=== PATIENT | female | born 1935 | race Caucasian/White ===

== ENCOUNTER → 2017-07-06 | Outpatient (CLI) | payer MEDICARE, BC ==
[~2017-07-06] MED LIST: COUMADIN 1MG1 MG/TAB; LEVOXYL0.137 MG PO; TOPROL XL 25MG25 MG PO
== END ==
LOC: MC.RAD 06-23 10:40
DX: Z12.31 Encounter for screening mammogram for malignant neoplasm of breast (principal)

== ENCOUNTER 2019-03-05 17:15 | Emergency (ER) | payer MEDICARE, BC ==
[~2019-03-05] VITALS: Ht 167.6 cm; Wt 83.6 kg
[2019-03-05 17:22] VITALS: BP 188/87; TEMP 96.8
[2019-03-05 19:00] LABS: INR 2.2 (0.8-3.0); PROTHROMBIN TIME 26.6 SECONDS (9.7-12.8)
[2019-03-05 19:25] VITALS: PULSE 96
== END 2019-03-05 19:25 | disposition home or self-care (01) ==
LOC: COL.ER 17:15
PROVIDERS: Emergency Medicine
DX: S51.012A Laceration without foreign body of left elbow, initial encounter (principal); I48.91 Unspecified atrial fibrillation; Z79.01 Long term (current) use of anticoagulants; Z86.73 Personal history of transient ischemic attack (TIA), and cerebral infarction without residual deficits; Z23 Encounter for immunization; W01.0XXA Fall on same level from slipping, tripping and stumbling without subsequent striking against object, initial encounter; Y92.129 Unspecified place in nursing home as the place of occurrence of the external cause

== ENCOUNTER 2019-05-10 11:30 | Outpatient (RCR) | payer MEDICARE, BC ==
[~2019-05-10] VITALS: Ht 167.6 cm; Wt 85.4 kg
[~2019-05-10 11:30] MED LIST changes: -COUMADIN 1MG1 MG/TAB; +COUMADIN 1MG1 MG/TAB PO
[2019-05-10] MEDS ORDERED: VIACTIV PO (11:40)
[2019-05-10] MEDS ORDERED: TYLENOL 325MG325 MG PO (11:40)
[2019-05-10 12:43] VITALS: BP 125/83; PULSE 62; TEMP 97.7
[2019-05-10] MEDS ORDERED: LIPITOR 10MG10 MG PO (12:46)
[2019-05-10] MEDS ORDERED: LIQUIFILM TEARS15 ML OU (12:47)
== END 2019-05-10 12:44 | disposition home or self-care (01) ==
LOC: EUO 11:30
DX: M81.0 Age-related osteoporosis without current pathological fracture (principal)
CPT/HCPCS: J0897

== ENCOUNTER 2019-11-09 13:09 | Outpatient (CLI) | payer MEDICARE, BC ==
[~2019-11-09] VITALS: Ht 167.6 cm; Wt 90.0 kg
[~2019-11-09 13:09] MED LIST changes: +LIPITOR 10MG10 MG PO; +LIQUIFILM TEARS15 ML OU; +TYLENOL 325MG325 MG PO; +VIACTIV PO
[2019-11-09 13:25] VITALS: BP 157/93; PULSE 90; TEMP 98.4
[2019-11-09] MEDS ORDERED: PRESERVISIONLUT PO (13:26)
[2019-11-09] MEDS ORDERED: SYNTHROID0.112 MG/T PO (13:27)
== END 2019-11-09 14:01 ==
LOC: EUO 13:09
DX: M81.0 Age-related osteoporosis without current pathological fracture (principal)
CPT/HCPCS: J0897

== ENCOUNTER → 2020-05-15 | Outpatient (CLI) | payer MEDICARE, BC ==
[~2020-05-15] MED LIST changes: +ALBUTEROL0.83 MG/ML IH; +ARTIFICIAL TEAR15 M7 OP; +COLACE 100100 MG/CAP PO; +COUMADIN 22.5 MG/TAB PO; +COUMADIN 5MG5 MG/TAB PO; +DULCOLAX S10 MG/SUPP RC; +LASIX 20MG TABL20 MG PO; +MELATIN 3 MG-11 TAB PO; +PRESERVISION1 SGL PO; +PRESERVISIONLUT PO; +ROXICODONE 55 MG/TAB PO; +SYNTHROID0.112 MG/T PO
[2020-05-15 19:45] LABS: COLLECTION METHOD CLEAN CATCH
[2020-05-15 19:58] LABS: MUCOUS Present /lpf; PH 5 (5-8); SQUAMOUS EPITHELIAL 0-2 /hpf; URINE APPEARANCE Clear; URINE BACTERIA None Seen /hpf; URINE BILIRUBIN Negative (NEGATIVE); URINE BLOOD Negative (NEGATIVE); URINE CALCIUM OXALATE CRYSTAL Present /hpf; URINE COLOR Yellow; URINE GLUCOSE Negative (NEGATIVE); URINE KETONE Negative (NEGATIVE); URINE LEUKOCYTE ESTERASE Negative (NEGATIVE); URINE NITRATE Negative (NEGATIVE); URINE PROTEIN(semi-quant) Negative (NEGATIVE); URINE RBC 0-2 /hpf; URINE UROBILINOGEN Negative (NEGATIVE)
== END ==
LOC: ZCOL.LAB 16:38
PROVIDERS: Family Medicine
DX: R30.0 Dysuria (principal)

== ENCOUNTER 2020-06-15 15:57 | Outpatient (CLI) | payer MEDICARE, BC ==
[~2020-06-15] VITALS: Ht 167.6 cm; Wt 84.7 kg
[2020-06-15 16:32] VITALS: BP 117/75; PULSE 75; TEMP 98.3
[2020-06-15] MEDS ORDERED: LASIX 20MG TABL20 MG PO (17:25)
[2020-06-15] MEDS ORDERED: COUMADIN4 MG PO (17:37)
[2020-06-15] MEDS ORDERED: K-TAB10 PO (17:38)
[2020-06-15] MEDS ORDERED: PROBIOTIC FORMU1 CAP PO (17:38)
== END 2020-06-15 17:39 | disposition home or self-care (01) ==
LOC: EUO 15:57
DX: M81.0 Age-related osteoporosis without current pathological fracture (principal)
CPT/HCPCS: J0897

== ENCOUNTER → 2020-07-05 | Outpatient (CLI) | payer MEDICARE, BC, MEDICAID ==
[~2020-07-05] MED LIST changes: +ANTACID500 M1 PO; +COUMADIN4 MG PO; +K-TAB10 PO; +PROBIOTIC FORMU1 CAP PO; +ULTRAM 50MG TAB50 MG PO
== END ==
LOC: MC.RAD 10:15
DX: Z12.31 Encounter for screening mammogram for malignant neoplasm of breast (principal); N64.89 Other specified disorders of breast

== ENCOUNTER → 2020-07-16 | Outpatient (CLI) | payer MEDICARE, BC, MEDICAID | LOC: MC.RAD 12:52 | DX: N63.11 Unspecified lump in the right breast, upper outer quadrant (principal); R92.8 Other abnormal and inconclusive findings on diagnostic imaging of breast; R92.2 Inconclusive mammogram; N64.89 Other specified disorders of breast ==

== ENCOUNTER 2020-12-20 14:53 | Outpatient (CLI) | payer MEDICARE, BC, MEDICAID ==
[~2020-12-20] VITALS: Ht 167.6 cm; Wt 91.3 kg
[~2020-12-20 14:53] MED LIST changes: -ANTACID500 M1 PO; -ULTRAM 50MG TAB50 MG PO
[2020-12-20 15:16] VITALS: BP 150/87; PULSE 78; TEMP 98.9
[2020-12-20] MEDS ORDERED: ULTRAM 50MG TAB50 MG PO (16:59)
[2020-12-20] MEDS ORDERED: ANTACID500 M1 PO (17:00)
== END 2020-12-20 15:47 ==
LOC: EUO 14:53
DX: M81.0 Age-related osteoporosis without current pathological fracture (principal)
CPT/HCPCS: J0897

== ENCOUNTER → 2021-01-14 | Outpatient (CLI) | payer MEDICARE, BC, MEDICAID ==
[~2021-01-14] MED LIST changes: +ANTACID500 M1 PO; +ULTRAM 50MG TAB50 MG PO
== END ==
LOC: MC.RAD 12:45
DX: N64.89 Other specified disorders of breast (principal)

== ENCOUNTER 2021-12-18 13:36 | Outpatient (CLI) | payer MEDICARE, BC, MEDICAID ==
[~2021-12-18] VITALS: Ht 167.6 cm; Wt 95.7 kg
[~2021-12-18 13:36] MED LIST changes: +SYNTHROID0.137 MG PO; +TOPROL XL 50MG50 MG PO; +TYLENOL 500MG500 MG PO
[2021-12-18 14:00] VITALS: BP 135/74; PULSE 81; TEMP 97.9
[2021-12-18] MEDS ORDERED: TYLENOL SU650 MG/SUP RC (14:56)
[2021-12-18] MEDS ORDERED: REFRESH TEARS 330 ML OP (14:59)
[2021-12-18] MEDS ORDERED: CALCIUM CARBON500 M1 PO (15:00)
[2021-12-18] MEDS ORDERED: HALLS9.1 MG PO (15:02)
[2021-12-18] MEDS ORDERED: CLARITIN 1010 MG/TAB PO (15:03)
[2021-12-18] MEDS ORDERED: COZAAR100 MG PO (15:04)
[2021-12-18] MEDS ORDERED: MELATONIN3 M1 PO (15:05)
[2021-12-18] MEDS ORDERED: TOPROL XL 50MG50 MG PO (15:06)
[2021-12-18] MEDS ORDERED: PRESERVISION1 SGL PO (15:07)
[2021-12-18] MEDS ORDERED: NYAMYC100000 U/G TP (15:07)
[2021-12-18] MEDS ORDERED: PROBIOTIC-MAJOR PO (15:08)
[2021-12-18] MEDS ORDERED: ALDACTONE50 MG PO (15:08)
== END 2021-12-18 15:11 ==
LOC: EUO 13:36
DX: M81.0 Age-related osteoporosis without current pathological fracture (principal)
CPT/HCPCS: J0897

== ENCOUNTER 2022-06-18 12:23 | Outpatient (CLI) | payer MEDICARE, BC, MEDICAID ==
[~2022-06-18] VITALS: Ht 167.6 cm; Wt 90.4 kg
[~2022-06-18 12:23] MED LIST changes: +ALDACTONE50 MG PO; +CALCIUM CARBON500 M1 PO; +CLARITIN 1010 MG/TAB PO; +COUMADIN 3MG3 MG/TAB PO; -COUMADIN4 MG PO; +COZAAR100 MG PO; +HALLS9.1 MG PO; +MELATONIN3 M1 PO; +NYAMYC100000 U/G TP; +PROBIOTIC-MAJOR PO; +REFRESH TEARS 330 ML OP; +SYNTHROID 0.10.15 MG PO; -SYNTHROID0.137 MG PO; +TYLENOL SU650 MG/SUP RC
[2022-06-18 12:43] VITALS: BP 121/47; PULSE 73; TEMP 97.5
== END 2022-06-18 16:34 | disposition home or self-care (01) ==
LOC: EUO 12:23
DX: M81.0 Age-related osteoporosis without current pathological fracture (principal)
CPT/HCPCS: J0897

== ENCOUNTER 2022-12-22 13:39 | Outpatient (CLI) | payer MEDICARE, BC, MEDICAID ==
[~2022-12-22] VITALS: Ht 165.1 cm; Wt 85.9 kg
[~2022-12-22 13:39] MED LIST changes: +ATROPINE 2 ML2 ML SL; +MAG-OX 400400 MG/TAB PO; +MUCINEX 60600 MG/TA1 PO; +SAMSCA15 MG PO; +ZYRTEC 10MG10 MG PO
[2022-12-22] MEDS ORDERED: IMODIUM 2MG CAPS2 MG PO (14:04)
[2022-12-22] MEDS ORDERED: JARDIANCE10 (14:05)
[2022-12-22] MEDS ORDERED: MILK OF MA400 MG/52 PO (14:06)
[2022-12-22] MEDS ORDERED: MYLANTA MAXIMU355 M1 PO (14:07)
[2022-12-22] MEDS ORDERED: PRESERVISION A1 EAC3 PO (14:08)
[2022-12-22] MEDS ORDERED: DAILY PROBIOTI250 MG PO (14:09)
[2022-12-22 14:24] VITALS: BP 109/70; PULSE 86; TEMP 97.8
== END 2022-12-22 14:34 | disposition home or self-care (01) ==
LOC: EUO 13:39
DX: M81.0 Age-related osteoporosis without current pathological fracture (principal)
CPT/HCPCS: J0897

== ENCOUNTER 2023-06-25 14:55 | Outpatient (CLI) | payer MEDICARE, BC, MEDICAID ==
[~2023-06-25] VITALS: Ht 165.1 cm; Wt 105.9 kg
[~2023-06-25 14:55] MED LIST changes: +DAILY PROBIOTI250 MG PO; +IMODIUM 2MG CAPS2 MG PO; +JARDIANCE10; +MILK OF MA400 MG/52 PO; +MYLANTA MAXIMU355 M1 PO; +PRESERVISION A1 EAC3 PO
[2023-06-25] MEDS ORDERED: Denosumab 60 MG/ML SYRINGE SQ ONE (15:30)
[2023-06-25 15:35] VITALS: BP 113/58; PULSE 79; TEMP 98.2
--- NOTE | 2023-06-25 15:45 | NUR ---
Pt tolerated prolia without issue. She exits dept in care of Liz Guilford staff member who accompanied her to today. Pt free of complaints at departure.
[2023-06-25] MEDS ORDERED: CORTIZONE-10 MAXIM11 TP (15:52)
[2023-06-25] MEDS ORDERED: COZAAR 25MG25 MG/TAB PO (15:53)
[2023-06-25] MEDS ORDERED: NATURAL MAGNES200 MG PO (15:53)
[2023-06-25] MEDS ORDERED: ZAROXOLYN 2.52.5 MG PO (15:54)
[2023-06-25] MEDS ORDERED: PROBIOTIC BLEN1 EACH PO (15:57)
[2023-06-25] MEDS ORDERED: SAMSCA15 MG PO (15:59)
== END 2023-06-25 15:45 | disposition home or self-care (01) ==
LOC: EUO 14:55
DX: M81.0 Age-related osteoporosis without current pathological fracture (principal)
CPT/HCPCS: J0897

== ENCOUNTER → 2023-08-11 | Outpatient (REF) | payer MEDICARE, BC, MEDICAID ==
[~2023-08-11] MED LIST changes: +CORTIZONE-10 MAXIM11 TP; +COZAAR 25MG25 MG/TAB PO; +NATURAL MAGNES200 MG PO; +PROBIOTIC BLEN1 EACH PO; +ZAROXOLYN 2.52.5 MG PO
[2023-08-11 14:59] LABS: ALBUMIN 3.8 g/dL (3.4-4.8); BILIRUBIN,TOTAL 0.8 mg/dL (0.2-1.2); CALCIUM 9.7 mg/dL (8.4-10.2); CREATININE, serum 1.44 mg/dL (0.57-1.11); POTASSIUM 3.2 mEq/L (3.5-4.5); TOTAL PROTEIN 6.9 g/dl (6.2-8.1)
== END ==
LOC: ZCOL.LAB 14:05
PROVIDERS: Internal Medicine Nephrology
DX: N18.32 Chronic kidney disease, stage 3b (principal)

== ENCOUNTER 2023-12-30 10:46 | Outpatient (CLI) | payer MEDICARE, BC, MEDICAID ==
[2023-12-30] MEDS ORDERED: Denosumab 60 MG/ML SYRINGE SQ ONE (11:00)
[2023-12-30 11:04] VITALS: BP 135/61; PULSE 80; TEMP 97.6
--- NOTE | 2023-12-30 11:30 | NUR ---
PT TOLERATED INJECTION WELL. VS REMAINED WITHIN NORMAL LIMITS. PT FREE FROM ACUTE CONCERNS AND COMPLAITNS. PT ASSISTED TO MAIN LOBBY VIA WHEELCHAIR UPON DISCHARGE. PT WAS ACCOMPANIED BY DAUGHTER.
== END 2023-12-30 11:31 | disposition home or self-care (01) ==
LOC: EUO 10:46
DX: M81.0 Age-related osteoporosis without current pathological fracture (principal)
CPT/HCPCS: J0897